=== PATIENT | male | born 1995 | race African-American/Black ===

== ENCOUNTER 2018-01-17 13:03 | Emergency (ER) | payer OTHER ==
[~2018-01-17] VITALS: Ht 175.3 cm; Wt 72.7 kg
[~2018-01-17 13:03] MED LIST: NOCURR
[2018-01-17] MEDS ORDERED: BENZONATATE 100 MG CAPSULE PO ONE (14:00)
[2018-01-17] MEDS ORDERED: BENZOCAINE/MENTHOL LOZENGE PO ONE (14:00)
[2018-01-17 14:16] LABS: RAPID GROUP A STREP NEGATIVE (NEGATIVE)
[2018-01-17 14:33] LABS: INFLUENZA TYPE A NEGATIVE FOR TYPE A (NEGATIVE); INFLUENZA TYPE B NEGATIVE FOR TYPE B (NEGATIVE)
[2018-01-17 15:03] VITALS: BP 110/64
== END 2018-01-17 15:04 | disposition home or self-care (01) ==
LOC: EMS 13:03
DX: J02.8 Acute pharyngitis due to other specified organisms (principal); J06.9 Acute upper respiratory infection, unspecified; B97.89 Other viral agents as the cause of diseases classified elsewhere; R07.89 Other chest pain
CPT/HCPCS: 87430; 87804; 99284